=== PATIENT | male | born 1990 ===

== ENCOUNTER 2020-06-30 10:47 | Emergency (ER) | payer SELFPAY ==
[~2020-06-30] VITALS: Ht 167.6 cm; Wt 70.5 kg
[2020-06-30] MEDS ORDERED: TETanus/Pertussis (Acell)/Diphther VAC/PF (Tdap-Adult) 0.5ml syringe IMVAC ONE (11:15)
[2020-06-30] MEDS ORDERED: AMOX-422 PO (11:36)
[2020-06-30 12:00] VITALS: BP 121/90
--- NOTE | 2020-06-30 12:01 | NUR ---
PATIENT DISCHARGED TO [facility] OF [facility] WITH PRESCRIPTION FOR ANTIBIOTICS, SPLINT TO LEFT ANKLE AND DRESSING TO RIGHT LOWER LEG.
== END 2020-06-30 12:08 | disposition home or self-care (01) ==
LOC: ER 10:48
DX: S82.872A Displaced pilon fracture of left tibia, initial encounter for closed fracture (principal); Z20.9 Contact with and (suspected) exposure to unspecified communicable disease; Z72.89 Other problems related to lifestyle; Z79.2 Long term (current) use of antibiotics; W54.0XXA Bitten by dog, initial encounter; Y93.89 Activity, other specified; Y92.89 Other specified places as the place of occurrence of the external cause; Y99.8 Other external cause status
CPT/HCPCS: 29515; 73590; 73610; 73630; 90471; 90715; 99284

== ENCOUNTER 2025-02-07 20:47 | Emergency (ER) | payer SELFPAY ==
[~2025-02-07] VITALS: Ht 167.6 cm; Wt 77.0 kg
[2025-02-07 21:06] VITALS: BP 131/87; PULSE 94; RESP 18; O2SAT 97
[2025-02-07] MEDS ORDERED: CEPH-585 PO (21:20)
--- NOTE | 2025-02-07 21:20 | Physician Documentation ---
History of Present Illness ~ Chief Complaint: Finger pain Stated Complaint: SPIDER BITE Time Seen by MD: 21:14 Primary Medical Doctor: NONE HPI Patient is a 34-year-old male that presents to the emergency department for evaluation of an area of infection and drainage to his right thumb. She reports that he was moving wood and may use gotten a splinter in his thumb but they were also black widows in the area and he may have been bitten by a spider. Patient denies any systemic symptoms denies any fever chills nausea vomiting abdominal pain or any other symptoms at this time. Tetanus within 5 years: No (05/31/20 [facility] ) Medication Reconciliation Allergies: Coded Allergies: No Known Allergies (Unverified , 06/30/20) Scheduled Cephalexin*Monohydrate* (Keflex*), 1 CAP PO QID Past Medical History Past Medical History: No Pertinent History Past Surgical History: no surgical history Alcohol Use: Occasionally Physical Exam Vital Signs: Heart Rate: 94, Respiratory Rate: 18, BP: 131/87, Pulse Oximetry: 97, Weight: 77.000 Oxygen Flow Rate: 0 Physical Exam VITALS: Reviewed and as above. GENERAL: Alert, no apparent distress. HEENT: Normocephalic, atraumatic, PERRL, EOMI, dry mucosa, no erythema RESPIRATORY: Lungs clear, normal breath sounds, no respiratory distress. CHEST: No accessory muscle use, no retractions CV: Regular rate, rhythm, no edema, no murmur, No: JVD GI: Soft, non-tender, bowels sounds present, no rebound, guarding, or rigidity BACK: No CVA tenderness, or swelling MUSCULOSKELETAL No deformities, no edema SKIN: Warm and dry, of purulence drainage small wound to the medial aspect of the nail bed on the right thumb. NEURO: Oriented x4, No motor or sensory deficit PSYCH: Normal mood and affect, no agitation Progress Results/Orders Results/Orders Vital Signs 02/07/25 21:06 Pulse 94 Resp 18 B/P (MAP) 131/87 Pulse Ox 97 O2 Flow Rate 0 Medical Decision Making Findings This patient presents with initial presentation of local erythema, warmth, swelling concerning for infection. Sensitivity/pain to light touch around the erythematous area. No lymphangitic spread visible and no fluid pockets or fluctuance concerning for abscess noted. Low concern for osteomyelitis or DVT. No immune compromise, bullae, pain out of proportion, or rapid progression concerning for necrotizing fasciitis. Patient to be discharged home with keflex with follow up with their PMD. We will follow up with primary care provider. He will return to the emergency department with any worsening of his current symptoms or any additional concerning symptoms that we discussed here today i.e. nausea vomiting fever chills abdominal pain lymphatic spread increased swelling increased redness increased pain or any other concerning symptoms. We will be provided with 1st dose of antibiotics here. Patient will follow up with his primary care provider. Patient will return to the emergency department with any worsening of his current symptoms or any additional concerning symptoms that we discussed here today. General Diff Dx:Considerations: Include: Abrasion, Contusion, Fracture, Hematoma, Laceration, Malunion, Neurovascular injury, Open fracture, Sprain, Ulcer, Other Finger Diff Dx:Considerations: Include: Abrasion, Cellulitis, Contusion, Dislocation, Fracture, Hematoma, Laceration, Neurovascular injury, Open fracture, Subungual hematoma, Other Departure Disposition: HOME / SELF CARE / HOMELESS Impression: Primary Impression: Wound abscess Additional Impressions: Skin infection Pain Drainage from wound Condition: Stable Discharge Instructions: Insect Bite, Adult, [id number] Additional Instructions: This patient presents with initial presentation of local erythema, warmth, swelling concerning for infection. Sensitivity/pain to light touch around the erythematous area. No lymphangitic spread visible and no fluid pockets or fl uctuance concerning for abscess noted. Low concern for osteomyelitis or DVT. No immune compromise, bullae, pain out of proportion, or rapid progression concerning for necrotizing fasciitis. Patient to be discharged home with keflex with follow up with their PMD. We will follow up with primary care provider. He will return to the emergency department with any worsening of his current symptoms or any additional concerning symptoms that we discussed here today i.e. nausea vomiting fever chills abdominal pain lymphatic spread increased swelling increased redness increased pain or any other concerning symptoms. We will be provided with 1st dose of antibiotics here. Patient will follow up with his primary care provider. Patient will return to the emergency department with any worsening of his current symptoms or any additional concerning symptoms that we discussed here today. Referrals: NO PRIMARY CARE PROVIDER (PCP) Prescriptions Cephalexin*Monohydrate* (Keflex*) 500 Mg Capsule 1 CAP PO QID for 7 Days, #28 CAP Prov: GRISELDA ARREDONDO 02/07/25 Education Educated: Patient Educated regarding: diagnosis, treatment, need for follow up Signature Scribe Signature: A Attestation: Scribed for Griselda Arredondo by MENG Hawk . 02/07/25 21:21 GRISELDA ARREDONDO Feb 07, 2025 21:20
== END 2025-02-07 21:55 | disposition home or self-care (01) ==
LOC: EDUNIT# 20:47 → ER 20:48
DX: L02.511 Cutaneous abscess of right hand (principal); Z72.89 Other problems related to lifestyle
CPT/HCPCS: 99283